=== PATIENT | male | born 1980 | race Caucasian/White ===

== ENCOUNTER 2017-03-14 18:22 | Emergency (ER) | payer SELFPAY ==
[~2017-03-14] VITALS: Ht 175.3 cm; Wt 86.4 kg
[2017-03-14] MEDS ORDERED: LISI-661 PO (18:35)
[2017-03-14] MEDS ORDERED: LORazepam 1 MG TABLET PO ONE (21:45)
[2017-03-14 22:14] VITALS: BP 128/87
== END 2017-03-14 22:22 | disposition home or self-care (01) ==
LOC: EMS 18:23
DX: F41.9 Anxiety disorder, unspecified (principal); F15.10 Other stimulant abuse, uncomplicated; F41.0 Panic disorder [episodic paroxysmal anxiety]; R00.2 Palpitations; F17.210 Nicotine dependence, cigarettes, uncomplicated; I10 Essential (primary) hypertension; Z79.899 Other long term (current) drug therapy
CPT/HCPCS: 93005; 99285; 99406